=== PATIENT | female | born 1960 | race Two or more races ===

== ENCOUNTER 2024-10-02 14:00 | Inpatient (IN) | payer OTHER ==
[~2024-10-02] VITALS: Ht 162.6 cm; Wt 121.6 kg
[2024-10-02] MEDS ORDERED: FOSAMAX70 MG PO (14:17)
--- NOTE | 2024-10-02 14:21 | NUR ---
SE RECIBE PTE ALERTA Y ORIENTADA X3. PTE REFIERE DOLOR ABDOMINAL DESDE EL LUCAS DE MAHESH. PTE NO PRESENTA DOLOR AL TACTO. SE MIDEN S/V Y SE UBICA.
[2024-10-02] MEDS ORDERED: LACTOBACILLUS ACIDOPHILUS 1 CAP CAP PO STA (17:00)
[2024-10-02] MEDS ORDERED: LACTOBACILLUS ACIDOPHILUS 1 CAP CAP PO ONE (17:06)
[2024-10-02 17:58] LABS: HEMATOCRIT 37.2 % (36.0-45.00); HEMOGLOBIN 12.7 g/dL (12.0-15.00); MEAN CELL VOLUME 91.5 fL (80.00-100.00); MEAN CORPUSCULAR HEMOGLOBIN 31.2 pg (27.00-32.0); MEAN CORPUSCULAR HGB CONC 34.1 g/dl (32.0-36.0); PLATELET COUNT 419 K/uL (150-450); RED BLOOD COUNT 4.07 M/uL (4.00-6.00); RED CELL DISTRIBUTION WIDTH 13.5 % (11.5-14.5)
[2024-10-02 18:00] LABS: PH,URINE 5.5 (5.0-8.0); URINE APPEARANCE Clear; URINE BACTERIA 12.2 uL (0.0-1933); URINE BILIRRUBIN Negative (NEGATIVE); URINE BLOOD Negative; URINE COLOR Yellow; URINE EPITHELIAL CELLS 4.1 uL (0.0-38.8); URINE GLUCOSE Negative (NEGATIVE); URINE KETONE Trace (NEGATIVE); URINE LEUKOCYTE Trace; URINE NITRATE Negative; URINE PROTEIN Negative (NEGATIVE); URINE RBC 8.6 uL (0.0-20.8); URINE UROBILINOGEN 0.2 E.U./dl; URINE WBC 3.7 uL (0.0-23.2)
--- NOTE | 2024-10-02 18:04 | NUR ---
PTE ALERTA Y ORIENTADA X3, RN THOMPSON ORIENTA SOBRE TX MEDICO, REIFERE ACEPTAR. CANALIZA Y COLECTA MUESTRAS DE LAB BAJO MEDIDAS ASEPTICAS. PEND A REALIZAR CT.
[2024-10-02 18:23] LABS: ALBUMIN 3.9 gm/dL (3.4-5.0); BILIRUBIN TOTAL 0.59 mg/dL (0.3-1.2); CALCIUM 10.1 mg/dL (8.5-10.1); CREATININE SERUM 0.54 mg/dL (0.55-1.02); GFR 113.66; GLOBULINA 4.4 G/DL (2.4-3.5); TOTAL PROTEIN 8.3 gm/dL (6.4-8.2)
[2024-10-02] MEDS ORDERED: PIPERACILLIN/TAZOBACTAM SODIUM 3.375 GM VIAL IV STA (18:23)
[2024-10-02] MEDS ORDERED: KETOROLAC TROMETHAMINE 15 MG VIAL IV STA (18:23)
[2024-10-02] MEDS ORDERED: KETOROLAC TROMETHAMINE 30 MG VIAL ONE (18:39)
[2024-10-02] MEDS ORDERED: PIPERACILLIN/TAZOBACTAM SODIUM 3.375 GM VIAL IV ONE ×2 (18:40→23:56)
[2024-10-02] MEDS ORDERED: PIPERACILLIN/TAZOBACTAM SODIUM 3.375 GM in 0.9 % SODIUM CHLORIDE 100 ML IV SCH (20:18)
[2024-10-02] MEDS ORDERED: MORPHINE SULFATE 2 MG/ML CARTRIDGE IV PRN (20:30)
[2024-10-02] MEDS ORDERED: 0.9 % SODIUM CHLORIDE 1,000 ML IV SCH (20:30)
[2024-10-02] MEDS ORDERED: ONDANSETRON HCL 4 MG in 0.9 % SODIUM CHLORIDE 50 ML IV PRN (20:30)
[2024-10-02] MEDS ORDERED: FAMOTIDINE/PF 20 MG in 0.9 % SODIUM CHLORIDE 8 ML IV PUSH SCH (21:00)
[2024-10-02] MEDS ORDERED: FAMOTIDINE/PF 20 MG/2 ML VIAL ONE (21:53)
[2024-10-02 23:43] VITALS: BP 113/74; O2SAT 98
[2024-10-03 04:16] VITALS: BP 100/62; O2SAT 97
[2024-10-03 10:00] VITALS: BP 95/65; O2SAT 98
[2024-10-03] MEDS ORDERED: FAMOTIDINE/PF 20 MG in 0.9 % SODIUM CHLORIDE 8 ML IV PUSH SCH (15:36)
[2024-10-03] MEDS ORDERED: MORPHINE SULFATE 2 MG/ML CARTRIDGE IV ONE (15:45)
[2024-10-03 16:03] VITALS: BP 99/59; O2SAT 98
[2024-10-03] MEDS ORDERED: KETOROLAC TROMETHAMINE 30 MG VIAL IV PRN (20:15)
[2024-10-03] MEDS ORDERED: ACETAMINOPHEN WITH CODEINE PO PRN (20:15)
[2024-10-03] MEDS ORDERED: LACTOBACILLUS ACIDOPHILUS 1 CAP CAP PO SCH (20:49)
[2024-10-03] MEDS ORDERED: ACETAMINOPHEN WITH CODEINE 1 UDTAB TABLET PO PRN (21:00)
[2024-10-04 00:14] VITALS: BP 90/55
[2024-10-04] MEDS ORDERED: ENOXAPARIN SODIUM 40 MG/0.4 ML SYRINGE SUBCUTANEO SCH (09:00)
[2024-10-04 09:24] VITALS: BP 100/63; O2SAT 99
[2024-10-04 16:58] VITALS: BP 121/80; O2SAT 99
== END 2024-10-04 17:40 | disposition home or self-care (01) | DRG 392 ==
LOC: ER 14:02 → SEC-K 20:42 → MEDI 20:42
PROVIDERS: General Practice; ADMIT Internal Medicine; ATTEND Internal Medicine
PROC: BW21ZZZ Computerized Tomography (CT Scan) of Abdomen and Pelvis (ICD-10-PCS; principal; 2024-10-02)
DX: K57.32 Diverticulitis of large intestine without perforation or abscess without bleeding (principal); K90.49 Malabsorption due to intolerance, not elsewhere classified